=== PATIENT | female | born 1990 | race Caucasian/White ===

== ENCOUNTER 2016-11-11 20:13 | Inpatient (IN) | payer OTHER ==
--- NOTE | ~2016-11-11 | DS ---
Discharge Summary [facility] [address] [place]. [address] NAME: DAVID MALONE : 86 STATUS : ADM IN [facility]#: [id number] AGE: 26 ADM/REG DATE : 11/11/16 MR#: [id number] REPORT SERV DATE: 11/13/16 DICTATED BY: KELLIE BUCIO DATE: 11/13/16 REPORT STATUS : Draft TRANSCRIBED BY: MODL DATE: 11/13/16 ADMISSION DATE: 11/11/2016 DISCHARGE DATE: 11/13/2016 FINAL HOSPITAL DIAGNOSIS: Crohn's exacerbation. CONSULTATIONS: GI. PROCEDURES: CT scan of the abdomen and pelvis done on the 1st showing thickening of the terminal ilium, extensive infiltration of surrounding small bowel mesenteric fat planes with thickening of the adjacent cecum, appendix, and infiltration of fat planes extending along the cecum and ascending colon and surrounding the appendix, most likely representing a flare of the patient's known underlying Crohn disease. No discrete abscess identified allowing for the limitations of non IV contrast technique and lack of oral contrast. No ascites or pneumoperitoneum to suggest bowel perforation. CURRENT PHYSICAL FINDINGS AND HISTORY OF PRESENT ILLNESS: Please see initial dictated H and P by Dr. Hunt. In brief, the patient is a 26-year-old female with Crohn's disease, recently re-established with GI, presented with nausea, vomiting, and abdominal pain. Vital signs at time of admission, BP was 132/82, temperature 98.4. Her T-max here has been 99.1. Initial pulse rate was in the 120s, but since the 2nd, she has been 70s to 80s. Initial BMP showed a sodium of 133 and a potassium of 3.3, both of which have been corrected. Creatinine was 0.96, albumin was slightly low at 2.2, lipase was 67. LFTs were not elevated. Iron was slightly low at 19 with a low iron binding capacity of 219 and a high ferritin of 311, TSH was 0.58, lactate was 0.9. HCG was negative. White count was 12, hemoglobin has been approximately 10.5 with hematocrit of approximately 31 to 32. Urinalysis was unremarkable. HOSPITAL COURSE: The patient was admitted for flare of her Crohn's. She was started on IV steroids. GI was consulted. Electrolyte protocol was given. Above labs tests were ordered. IV fluids were given, and the patient rapidly improved. She was also started on Levaquin and Flagyl. The following morning, treatment was continued. She was started on probiotic the following morning. She was advanced to diet and approved for discharge per GI. If she tolerated it well, they will contact her with outpatient followup, although she does have a pre-existing appointment approximately a month. Prescriptions were written for Levaquin 750 and Flagyl 500, both for a five-day course; ten tablets of Percocet 5/325 q.4; and a Rx for Zofran. She already had a previously picked up prescription for prednisone. She will continue that. She will get an [id number] probiotic. She will otherwise continue her Cimzia and hydrocodone. She is to return for any recurrence of symptoms. LEILANI/KELSI Kellie Bucio M.D. Discharge Summary [address] [address] NAME: DAVID MALONE : 86 STATUS : ADM IN PAT#: [id number] AGE: 26 ADM/REG DATE : 11/11/16 MR#: [id number] REPORT SERV DATE: 11/13/16 DICTATED BY: KELLIE BUCIO DATE: 11/13/16 REPORT STATUS : Draft TRANSCRIBED BY: KELSI DATE: 11/13/16 / [id number] CC: Kellie Bucio M.D.
--- NOTE | ~2016-11-11 | CN ---
Consultation Report [facility] [address] [place]. [address] NAME: DAVID MALONE : 86 STATUS : ADM IN PAT#: [id number] AGE: 26 ADM/REG DATE : 11/11/16 MR#: [id number] REPORT SERV DATE: 11/12/16 DICTATED BY: MANISH CULLEN DATE: 11/12/16 REPORT STATUS : Draft TRANSCRIBED BY: MODCony DATE: 11/12/16 GI CONSULTATION DATE OF CONSULTATION: 11/12/2016 REASON FOR CONSULTATION: Evaluation and management of abdominal pain, and Crohn's exacerbation. HISTORY OF PRESENT ILLNESS: Ms Malone is a 26-year-old female patient, known to Dr. Christine in the outpatient setting, who presented to [facility] on 11/11/2016 with a chief complaint of increasing abdominal pain, and CT evidence of Crohn's exacerbation. The patient gives a history of Crohn's diagnosis in April of [address] Christine. She had a colonoscopy in April 2016 with ileocecal valve showing red mild patchy active colitis. In 05/2016, she had abnormal small bowel follow through with the TI showing to be abnormal. Ultimately, was started on Cimzia in August of 2016. Prior to that, she was maintained on steroids, and she had no insurance coverage, and could not get any other medication. Since then she has been treated with Cimzia loading doses, and she has been taking every four weeks. She was seen in the office yesterday by Dr. Christine. He started her on a prednisone tapered course as well as increased her Cimzia to every two weeks dosing. She states that her pain increased, and was unable to bear it anymore, so she came into the hospital for further evaluation. CT scan done in the emergency room without contrast showed thickening of the terminal ileum with extensive infiltration of the surrounding small bowel mesenteric fat planes with thickening of the adjacent cecum, appendix, and infiltration of the fat planes extending along the cecum, ascending colon, and surrounding appendix consistent with a Crohn's flare with no abscess being identified. She states that she has been feeling bad since last with abdominal pain and cramping, inability to eat. She denies diarrhea, states that actually she has been constipated and having to use stool softeners, which is not normal for her. She denies any bright red blood per rectum. No mucus. She has not been on any recent antibiotics. She has no family history of inflammatory bowel disease. Currently, after being placed on IV steroids and antibiotic, she is feeling better. She is able to tolerate a full liquid diet this morning. I have discussed with her the plan of care. We will continue IV steroids and IV antibiotics. Monitor her improvement, and advance diet as tolerated, and plan to transition her back to oral steroids as soon as possible. PAST MEDICAL HISTORY: Positive for Crohn's disease, diagnosed in April 2016, maintained on Cimzia. PAST SURGICAL HISTORY: None. SOCIAL HISTORY: Past tobacco. No alcohol. No illicits. She has an 8-year-old daughter, works outside of the home. FAMILY HISTORY: Noncontributory from a GI standpoint. Consultation Report [address] [place]. [address] NAME: DAVID MALONE : 86 STATUS : ADM IN [facility]#: [id number] AGE: 26 ADM/REG DATE : 11/11/16 MR#: [id number] REPORT SERV DATE: 11/12/16 DICTATED BY: MANISH CULLEN DATE: 11/12/16 REPORT STATUS : Draft TRANSCRIBED BY: KELSI DATE: 11/12/16 ALLERGIES: NONE. HOME MEDICATIONS: Cimzia, [place], Zofran, and prednisone. REVIEW OF SYSTEMS: A 10-point review of systems has been obtained with pertinent positives are being addressed in the history of present illness. PHYSICAL EXAMINATION: VITAL SIGNS: Temperature 98.2, pulse 95, respirations 16, and blood pressure is 120/72. NEUROLOGIC: Reveals an alert female, resting in bed. No focal deficits. GENERAL: Cooperative, in no apparent distress. Awake, alert and oriented x3. HEAD, EARS, EYES, NOSE, AND THROAT: Anicteric. Pupils are equal, round, and reactive to light and accommodation. Normocephalic and atraumatic. NECK: No JVD. No palpable nodes. Supple. LUNGS: Clear anteriorly with normal respiratory effort exhibited. Equal expansion. CARDIOVASCULAR SYSTEM: Regular rate and rhythm. ABDOMEN: Soft, very minimal tenderness diffusely. No rebound or guarding elicited on exam. She has hypoactive bowel sounds. EXTREMITIES: No edema. Normal distal pulses. SKIN: Warm, dry, and intact. PERTINENT LABORATORY DATA: Sodium is 133, potassium 3.3, BUN is 7, and creatinine 0.96. White count 12, hemoglobin 11.9, and hematocrit 35.8. Albumin was 2.2. Lipase 67. Alkaline phosphatase 90, total bilirubin of 0.8, ALT of 16, and AST of 15. Lactate was 0.5. ASSESSMENT: 1. Crohn's exacerbation. 2. Abdominal pain secondary to #1. 3. Leukocytosis. PLAN: 1. Continue IV steroids and IV antibiotics. 2. Full liquid diet today. Advance to soft in the morning. 3. Follow labs. 4. Cimzia every two weeks. 5. When discharge, restart prednisone taper. We will follow. KIM/KELSI [place] JORDI Romano Consultation Report [address] [address] NAME: DAVID MALONE : 86 STATUS : ADM IN PAT#: [id number] AGE: 26 ADM/REG DATE : 11/11/16 MR#: [id number] REPORT SERV DATE: 11/12/16 DICTATED BY: MANISH CULLEN DATE: 11/12/16 REPORT STATUS : Draft TRANSCRIBED BY: KELSI DATE: 11/12/16 / [id number] CC: Elvis Avendaño M.D.
--- NOTE | ~2016-11-11 | HP ---
History And Physical [place] [id number] [facility] [place]. [address] NAME: DAVID MALONE : 86 STATUS : ADM IN [facility]#: [id number] AGE: 26 ADM/REG DATE : 11/11/16 MR#: [id number] REPORT SERV DATE: 11/11/16 DICTATED BY: ELENA IRVIN DATE: 11/11/16 REPORT STATUS : Draft TRANSCRIBED BY: MODL DATE: 11/11/16 DATE OF ADMISSION: 11/11/2016 CHIEF COMPLAINT: A 26-year-old female with Crohn's disease, now presenting with increasing abdominal pain and vomiting. HISTORY OF PRESENTING ILLNESS: The patient's history was obtained through careful interview with the patient and mother. The patient, in 04/2016, was diagnosed with Crohn's disease, under the care Dr. Rudy Christine. It was not until eight weeks ago that she was able to start Cimzia, but has not had much improvement in her symptoms. On 11/07/2016, the patient had acute worsening of her abdominal pain and symptoms. She describes right lower quadrant abdominal pain mostly a sharp cramping quality that radiates into the lower quadrants, an 8/10 severity that is present on a daily basis. She has had intractable nausea, vomiting, and some diarrhea. She has also had some shortness of breath characterized by dyspnea on exertion, but no cough, no chest pain. She reports no bright red blood per rectum. No melena. She has had chills, lightheadedness, and dizziness. No fevers. No rash, no arthritis, no change in urine habit. The patient has also had about a 15-pound weight loss in the last month alone. REVIEW OF SYSTEMS: Otherwise, a 14-point review of systems was obtained and was negative. PAST MEDICAL HISTORY: Crohn's disease diagnosed 04/2016, seen by Dr. Rudy Christine. PAST SURGICAL HISTORY: Denies any. ALLERGIES: NO KNOWN DRUG ALLERGIES. SOCIAL HISTORY: Quit smoking in 01/2016. No alcohol use. She lives with her 8-year-old daughter. They live in [place], [place]. The patient works at [employer]. FAMILY HISTORY: Diabetes, but no liver disease. No abdominal disease. No inflammatory bowel disease. CURRENT MEDICATIONS: Include Cimzia every other week, hydrocodone p.r.n., Zofran p.r.n., prednisone 10 mg p.o. daily. History And Physical [address] [address] NAME: DAVID MALONE : 86 STATUS : ADM IN PAT#: [id number] AGE: 26 ADM/REG DATE : 11/11/16 MR#: [id number] REPORT SERV DATE: 11/11/16 DICTATED BY: ELENA IRVIN DATE: 11/11/16 REPORT STATUS : Draft TRANSCRIBED BY: KELSI DATE: 11/11/16 PHYSICAL EXAMINATION: VITAL SIGNS: Temperature 98.4, pulse 122, blood pressure 139/86, respiratory rate 18, and O2 saturation 97% on room air. GENERAL: An ill-appearing female. She describes distress from nausea and abdominal pain. HEENT: Pupils equal, round, and reactive to light. No conjunctival pallor. No scleral icterus. Nares are patent. Oropharynx is clear of obstruction. Dry mucous membranes. No intraoral lesions. NECK: Trachea midline. No thyromegaly. LYMPH: No cervical lymphadenopathy. No supraclavicular lymphadenopathy. No inguinal lymphadenopathy. RESPIRATORY: Clear to auscultation at bases. No wheezes, rales, or rhonchi. Normal respiratory effort. CARDIOVASCULAR: Tachycardic regular rhythm. No murmurs, rubs, or gallops. No extremity edema is appreciated. ABDOMEN: Diffusely tender by my exam, but particularly in the right lower quadrant. No guarding. No rebound. Nondistended. No hepatosplenomegaly. DERMATOLOGICAL: Warm and dry extremities. No pallor. No cyanosis. PSYCHIATRIC: Normal affect. Good mood. Alert and oriented x3. LABORATORY DATA: White blood cell count 12, hemoglobin 11, hematocrit 35, platelets 353. Sodium 133, potassium 3.3, chloride 100, bicarb 28, BUN 7, creatinine 0.96, glucose 108, albumin 2.2, lipase 67. Serum test negative. Liver enzymes within normal limits. Urinalysis shows 12 white blood cells, negative leukocyte esterase, negative nitrites, 100 protein. STUDIES: A CT scan of the abdomen and pelvis shows terminal ileum inflammatory changes and colitis. ASSESSMENT AND PLAN: 1. Crohn's exacerbation. Place on IV Solu-Medrol, IV Levaquin, IV Flagyl, IV fluids. Continue Cimzia. 2. Systemic inflammatory response syndrome versus sepsis. Check blood cultures. Check lactic acid. Place on IV antibiotics. 3. Hypoalbuminemia. KPL/KELSI Elena Irvin M.D. / [id number] CC: History And Physical [address] [address] NAME: DAVID MALONE : 86 STATUS : ADM IN [facility]#: [id number] AGE: 26 ADM/REG DATE : 11/11/16 MR#: [id number] REPORT SERV DATE: 11/11/16 DICTATED BY: ELENA IRVIN DATE: 11/11/16 REPORT STATUS : Draft TRANSCRIBED BY: KELSI DATE: 11/11/16 Makenzie Ulrich M.D.
[2016-11-11 16:47] LABS: BASOPHILS 0.1 %; BASOPHILS ABSOLUTE 0.01 10/3/uL (0.0-0.16); EOSINOPHILS 0.1 %; EOSINOPHILS ABSOLUTE 0.01 10/3/uL (0.0-0.53); HEMATOCRIT 35.8 % (36.0-48.0); HEMOGLOBIN 11.9 g/dL (12.0-16.0); IMMATURE GRANULOCYTES 0.3 %; IMMATURE GRANULOCYTES ABSOLUTE 0.04 10/3/uL (0.0-0.11); LYMPHOCYTES 8.9 %; LYMPHOCYTES ABSOLUTE 1.07 10/3/uL (0.67-4.30); MEAN CORPUS HGB CONC 33.2 g/dL (32.0-36.0); MEAN CORPUSCULAR VOLUME 81.4 fL (80-100); MEAN PLATELET VOLUME 10.9 fL (9.2-13.0); MONOCYTES 13.2 %; MONOCYTES ABSOLUTE 1.58 10/3/uL (0.21-1.20); NEUTROPHILS 77.4 %; NEUTROPHILS ABSOLUTE 9.29 10/3/uL (2.02-8.40); PLATELET COUNT 353 10/3/uL (150-400); RBC DISTRIBUTION WIDTH 14.2 % (12.0-16.0)
[2016-11-11 16:50] LABS: MANUAL DIFF NO %
[2016-11-11 16:58] LABS: ASCORBIC ACID (UR NOT ORDER) NEG (NEG); BILIRUBIN, URINE NEGATIVE (NEG); KETONE, URINE NEGATIVE (NEG); LEUKOCYTE ESTERASE(NOT OR NEG (NEG); NITRITE (URINE) NEG (NEG); WBC (NOT ORDERED) (RFLEX) 12 (0-5)
[2016-11-11 17:01] LABS: A/G RATIO 0.4 (0.7-1.9); ALBUMIN 2.2 G/DL (3.5-5.0); ALKALINE PHOSPHATASE 90 U/L (45-117); BUN (BLOOD UREA NITROGEN) 7 MG/DL (6-23); CALCIUM, SERUM 8.4 MG/DL (8.5-10.4); CHLORIDE, SERUM 100 MMOL/L (96-112); CO2 (CARBON DIOXIDE) 28 MMOL/L (24-34); CREATININE 0.96 MG/DL (0.55-1.02); GFR AFRICAN AMERICAN 93 ML/MIN (>=60); GFR NON AFRICAN AMERICAN 80 ML/MIN (>=60); GLOBULIN 5.2 G/DL (2.5-4.1); GLUCOSE, SERUM 108 MG/DL (60-99); POTASSIUM, SERUM 3.3 MMOL/L (3.5-5.3); SGOT(AST) 15 U/L (5-40); SGPT(ALT) 17 U/L (5-65); SODIUM, SERUM 133 MMOL/L (135-148); TOTAL BILIRUBIN 0.8 MG/DL (0-1.2); TOTAL PROTEIN 7.4 G/DL (6.0-8.5)
[2016-11-11] MEDS ORDERED: CIMZIA SC (20:49)
[2016-11-11] MEDS ORDERED: NORCO1 TA1 PO (20:50)
[2016-11-11] MEDS ORDERED: ZOFRAN8 PO (20:50)
[2016-11-11] MEDS ORDERED: P10 (20:51)
[2016-11-12 08:09] LABS: BASOPHILS 0.1 %; BASOPHILS ABSOLUTE 0.01 10/3/uL (0.0-0.16); EOSINOPHILS 0 %; HEMOGLOBIN 10.5 g/dL (12.0-16.0); IMMATURE GRANULOCYTES 1.1 %; IMMATURE GRANULOCYTES ABSOLUTE 0.11 10/3/uL (0.0-0.11); LYMPHOCYTES 5.7 %; LYMPHOCYTES ABSOLUTE 0.58 10/3/uL (0.67-4.30); MEAN CORPUS HGB CONC 32.7 g/dL (32.0-36.0); MEAN CORPUSCULAR HEMOGLOB 26.9 pg (26.0-34.0); MEAN CORPUSCULAR VOLUME 82.1 fL (80-100); MEAN PLATELET VOLUME 11.3 fL (9.2-13.0); MONOCYTES 4.4 %; MONOCYTES ABSOLUTE 0.45 10/3/uL (0.21-1.20); NEUTROPHILS 88.7 %; NEUTROPHILS ABSOLUTE 8.98 10/3/uL (2.02-8.40); PLATELET COUNT 329 10/3/uL (150-400); RBC DISTRIBUTION WIDTH 14.3 % (12.0-16.0); RED CELL COUNT 3.91 10/6/uL (4.0-5.6); WHITE BLOOD CELLS 10.1 10/3/uL (4.5-10.5)
[2016-11-12 08:10] LABS: HEMATOCRIT 32.1 % (36.0-48.0); MANUAL DIFF NO %
[2016-11-12 08:13] LABS: INTERNATIONAL NORMAL RATI 1.3 UNITS (-); PROTIME (NOT ORD) 16.2 SEC (12.0-14.5)
[2016-11-12 08:14] LABS: PARTIAL THROMBO TIME 47.9 SEC (22.5-37.2)
[2016-11-12 08:29] LABS: A/G RATIO 0.4 (0.7-1.9); ALKALINE PHOSPHATASE 82 U/L (45-117); BUN (BLOOD UREA NITROGEN) 7 MG/DL (6-23); CALCIUM, SERUM 8.3 MG/DL (8.5-10.4); CHLORIDE, SERUM 103 MMOL/L (96-112); CO2 (CARBON DIOXIDE) 26 MMOL/L (24-34); CREATININE 0.64 MG/DL (0.55-1.02); FERRITIN 311 NG/ML (8-252); GFR AFRICAN AMERICAN 141 ML/MIN (>=60); GFR NON AFRICAN AMERICAN 121 ML/MIN (>=60); GLOBULIN 5.2 G/DL (2.5-4.1); GLUCOSE, SERUM 108 MG/DL (60-99); IRON BINDING CAPACITY 219 MCG/DL (225-410); IRON, SERUM 19 MCG/DL (35-150); POTASSIUM, SERUM 3.4 MMOL/L (3.5-5.3); SGOT(AST) 13 U/L (5-40); SGPT(ALT) 15 U/L (5-65); SODIUM, SERUM 138 MMOL/L (135-148); TOTAL BILIRUBIN 0.7 MG/DL (0-1.2); TOTAL PROTEIN 7.2 G/DL (6.0-8.5)
[2016-11-13 06:47] LABS: HEMATOCRIT 31.5 % (36.0-48.0); HEMOGLOBIN 10.4 g/dL (12.0-16.0); MEAN CORPUSCULAR HEMOGLOB 26.9 pg (26.0-34.0); MEAN CORPUSCULAR VOLUME 81.4 fL (80-100); MEAN PLATELET VOLUME 11.5 fL (9.2-13.0); PLATELET COUNT 336 10/3/uL (150-400); RBC DISTRIBUTION WIDTH 14.4 % (12.0-16.0); RED CELL COUNT 3.87 10/6/uL (4.0-5.6); WHITE BLOOD CELLS 13.1 10/3/uL (4.5-10.5)
[2016-11-13 06:48] LABS: MANUAL DIFF YES %
[2016-11-13 07:00] LABS: BUN (BLOOD UREA NITROGEN) 10 MG/DL (6-23); CALCIUM, SERUM 8.7 MG/DL (8.5-10.4); CHLORIDE, SERUM 110 MMOL/L (96-112); CO2 (CARBON DIOXIDE) 24 MMOL/L (24-34); CREATININE 0.54 MG/DL (0.55-1.02); GFR AFRICAN AMERICAN 149 ML/MIN (>=60); GFR NON AFRICAN AMERICAN 128 ML/MIN (>=60); GLUCOSE, SERUM 120 MG/DL (60-99); POTASSIUM, SERUM 4.1 MMOL/L (3.5-5.3); SODIUM, SERUM 142 MMOL/L (135-148)
[2016-11-13 07:24] LABS: BAND NEUTROPHILS 9 %; IMMATURE GRANS ABSOLUTE (CALC) 0.13 10/3/uL (0.0-0.11); LYMPHOCYTES 14 %; LYMPHOCYTES ABSOLUTE (CALC) 1.83 10/3/uL (0.67-4.30); METAMYELOCYTES 1 %; MONOCYTES 1 %; MONOCYTES ABSOLUTE (CALC) 0.13 10/3/uL (0.21-1.20); SEGMENTED NEUTROPHIL (0) 75 %; TOTAL NUCLEATED CELLS 100
[2016-11-13 07:25] LABS: PLATELET ESTIMATE ADQ (ADEQUATE); POLYCHROMASIA 1+ (2-5/OIF) (0-1/OIF); TOXIC GRANULATION 1+
[2016-11-13] MEDS ORDERED: PCET PO (15:35)
[2016-11-13] MEDS ORDERED: LEVAQUIN750 MG PO (15:37)
[2016-11-13] MEDS ORDERED: FLAG500TAB PO (15:38)
[2016-11-13] MEDS ORDERED: ZOFRAN4 PO (15:39)
== END 2016-11-13 17:19 | disposition home or self-care (01) | DRG 386 ==
LOC: ER 20:13 → 4SO 21:56
PROVIDERS: Hospitalist; Nurse Practitioner Family
DX: K50.10 Crohn's disease of large intestine without complications (principal); E44.1 Mild protein-calorie malnutrition; E88.09 Other disorders of plasma-protein metabolism, not elsewhere classified; Z87.891 Personal history of nicotine dependence; Z79.891 Long term (current) use of opiate analgesic; Z79.52 Long term (current) use of systemic steroids; Z79.899 Other long term (current) drug therapy; Z68.35 Body mass index [BMI] 35.0-35.9, adult
CPT/HCPCS: 74176; 80048; 80053; 81001; 82728; 83540; 83550; 83605; 83690; 83735; 84132; 84443; 84703; 85025; 85610; 85730; 96374; 99285; A9270-GY; J1956; J2405; J2920